=== PATIENT | female | born 1945 | race Caucasian/White ===

== ENCOUNTER 2021-07-16 12:08 | Emergency (ER) | payer MEDICARE ==
[~2021-07-16] VITALS: Ht 165.1 cm; Wt 76.0 kg
[2021-07-16] MEDS ORDERED: fentaNYL PF VIAL 100 MCG/2 ML VIAL IV ONE ×2 (12:30→15:45)
[2021-07-16] MEDS ORDERED: MULTIVIT INFUSN,ADULT 4,VIT K 10 ML, THIAMINE INJ 100 MG, FOLIC ACID INJ 1 MG in IV NOR... IV ONE (12:30)
--- NOTE | 2021-07-16 12:40 | PHYS DOC ---
Past Medical History Past Medical History: A-Fib, Alcoholism Past Surgical History: Other Additional Past Surgical Histo: patient is poor historian Alcohol Use: Heavy General Adult EDM: Chief Complaint: UPPER EXTREMITY INJURY HPI: HPI: Patient is a 75-year-old female brought in to the emergency department by EMS for a fall that had happened 2 days prior. Patient states that she recently started drinking again after 10 years sober and tripped over her cat 2 days ago. She denies hitting her head and states that she fell because she tripped over her cat and not anything else. Denies any radiation or associated symptoms at this time. Patient is somewhat of a poor historian Review of Systems: Review of Systems: Constitutional: Denies fever or chills Eyes: Denies redness or eye pain HENT: Denies nasal congestion or sore throat Respiratory: Denies cough or shortness of breath Cardiovascular: Denies chest pain or palpitations GI: Denies abdominal pain, nausea, or vomiting : Denies dysuria or hematuria Musculoskeletal: complains of left shoulder pain x 2 days Integument: Denies rash or skin lesions Neurologic: Denies headache, focal weakness or sensory changes Complete systems were reviewed and found to be within normal limits, except as documented in this note. Heart Score: C/O Chest Pain: N/A Current Medications: Current Medications Medications (Trade) Dose Ordered Sig/Gagandeep Start Time Stop Time Status Last Admin Dose Admin Fentanyl Citrate (Fentanyl 2ml Vial) 50 mcg 1X ONCE 07/16/21 12:30 07/16/21 12:31 DC Multivitamins 10 ml/Thiamine HCl 100 mg/Folic Acid 1 mg/Sodium Chloride 1,011.2 ml @ 1,000.088 mls/hr 1X ONCE 07/16/21 12:30 07/16/21 13:30 Allergies: Allergies: Allergies Coded Allergies Type Severity Reaction Last Updated Verified No Known Drug Allergies 07/16/21 No Physical Exam: PE: Constitutional: Well developed, patient appears malnourished and uncomfortable. HENT: Normocephalic, abrasion and ecchymoses surrounding her left eye. Eyes: conjunctiva normal, no discharge Neck: Normal range of motion, no tenderness, supple Lungs & Thorax: No respiratory distress, equal chest rise and fall, CTAB Abdomen: Soft, epigastric tenderness, good bowel sounds x 4 Skin: Warm, dry, no erythema, no rash Back: No tenderness, no CVA tenderness Extremities: Limited range of motion of the left arm compared to right arm. Prominent ecchymoses on the left shoulder radiating down the left arm. Radial pulse and sensation intact in the bilateral upper extremities Neurologic: Alert and oriented X 3, normal motor function, normal sensory function, Psychologic: Affect diminished judgment abnormal Current Patient Data: Labs: Laboratory Tests Test 07/16/21 12:46 White Blood Count 19.9 x10^3/uL Red Blood Count 4.24 x10^6/uL Hemoglobin 13.1 g/dL Hematocrit 39.6 % Mean Corpuscular Volume 93 fL Mean Corpuscular Hemoglobin 31 pg Mean Corpuscular Hemoglobin Concent 33 g/dL Red Cell Distribution Width 13.7 % Platelet Count 266 x10^3/uL Neutrophils (%) (Auto) 86 % Lymphocytes (%) (Auto) 5 % Monocytes (%) (Auto) 8 % Eosinophils (%) (Auto) 0 % Basophils (%) (Auto) 0 % Neutrophils # (Auto) 17.2 x10^3/uL Lymphocytes # (Auto) 1.1 x10^3/uL Monocytes # (Auto) 1.6 x10^3/uL Eosinophils # (Auto) 0.0 x10^3/uL Basophils # (Auto) 0.0 x10^3/uL Platelet Estimate Pending Sodium Level 145 mmol/L Potassium Level 3.1 mmol/L Chloride Level 106 mmol/L Carbon Dioxide Level 21 mmol/L Anion Gap 18 Blood Urea Nitrogen 25 mg/dL Creatinine 2.2 mg/dL Estimated GFR (Cockcroft-Gault) 21.9 BUN/Creatinine Ratio 11 Glucose Level 165 mg/dL Calcium Level 8.2 mg/dL Magnesium Level 1.6 mg/dL Total Bilirubin 0.8 mg/dL Aspartate Amino Transf (AST/SGOT) 54 U/L Alanine Aminotransferase (ALT/SGPT) 45 U/L Alkaline Phosphatase 126 U/L Creatine Kinase 1447 U/L Creatine Kinase MB (Mass) 10.1 ng/mL Creatine Kinase MB Relative Index 0.7 % Troponin I High Sensitivity 29 ng/L Total Protein 6.9 g/dL Albumin 2.9 g/dL Albumin/Globulin Ratio 0.7 Lipase 25 U/L Ethyl Alcohol Level < 10 mg/dL Current Medications Medications (Trade) Dose Ordered Sig/Gagandeep Route PRN Reason Start Time Stop Time Status Last Admin Dose Admin Multivitamins 10 ml/Thiamine HCl 100 mg/Folic Acid 1 mg/Sodium Chloride 1,011.2 ml @ 1,000.088 mls/hr 1X ONCE IV 07/16/21 12:30 07/16/21 13:30 DC 07/16/21 12:30 Fentanyl Citrate (Fentanyl 2ml Vial) 50 mcg 1X ONCE IV 07/16/21 12:30 07/16/21 12:31 DC 07/16/21 12:30 Vital Signs: Vital Signs Date Time Temp Pulse Resp B/P (MAP) Pulse Ox O2 Delivery O2 Flow Rate FiO2 07/16/21 12:14 98.4 100 16 124/67 (86) 94 Room Air 98.4 EKG: EKG: @1513 tachycardic @ 104 BPM, irregular rhythm, no p-wave found, t wave abnormality in anterior and inferior leads. NO ST SEGMENT ELEVATION. QT/QTc: 348/464 Radiology/Procedures: Radiology/Procedures: PROCEDURE: SHOULDER 2+V LEFT EXAM: Left shoulder, 3 views. HISTORY: Pain. Fall. COMPARISON: None. FINDINGS: 3 views of the left shoulder obtained. There is a displaced and angulated humeral neck fracture. There is no evidence of shoulder dislocation. IMPRESSION: Displaced and angled humeral neck fracture. Electronically signed by: Lenora Steel MD (07/16/2021 12:42 PM) [id number] PROCEDURE: CT MAXILLOFACIAL WO CONTRAST EXAM: Head CT without contrast; maxillofacial bone CT without contrast; cervical spine CT without contrast. HISTORY: Fall. Pain. TECHNIQUE: Computed tomographic images of the head, maxillofacial bones and cervical spine were obtained without contrast. *One or more of the following individualized dose reduction techniques were utilized for this examination: 1. Automated exposure control. 2. Adjustment of the mA and/or kV according to patient size. 3. Use of iterative reconstruction technique. COMPARISON: None. FINDINGS: Head: There is no intracranial hemorrhage. There is no mass effect or midline shift. There is no hydrocephalus. There are cerebral white matter changes, likely due to chronic small vessel disease. There is mild cerebral volume loss. There is no suspicious calvarial lesion. The mastoid air cells are clear. The temporomandibular joints are intact. Maxillofacial bones: There is slight angulation of the right nasal bone and is cartilage, the appearance of which favors a healed fracture or developmental in etiology. There is a chronic right lamina papyracea fracture. There is rightward nasal septal deviation. The ostiomeatal units are patent. There is no sinus opacification or air-fluid level. Cervical spine: There is cervical kyphosis and multilevel degenerative listhesis. There is a moderate compression fracture with Schmorl's node formation at T3. This is chronic in appearance. There is severe degenerative endplate remodeling with disc space narrowing, osteophytosis and Schmorl's node formation at the mid lower cervical and upper thoracic levels. There is multilevel advanced facet arthropathy. No fracture is seen. The combination of degenerative changes results in mild left foraminal stenosis at C2-C3, severe right and mild to moderate left foraminal stenosis at C3-C4, severe right and [id number] left foraminal stenosis at C4-C5, moderate right and mild central canal stenosis at C5-C6 and severe right foraminal and mild central canal stenosis at C6-C7. IMPRESSION: 1. No acute intracranial finding or evidence of acute maxillofacial bone or cervical spine trauma. 2. Chronic appearing right lamina papyracea fracture and possible right nasal bone fracture. 3. Chronic appearing T3 compression fracture with endplate Schmorl's node formation. 4. Cerebral white matter changes, likely due to chronic small vessel disease. 5. Cerebral volume loss. 6. Multilevel degenerative change throughout the cervical spine, resulting in significant stenosis at the aforementioned levels. Electronically signed by: Lenora Steel MD (07/16/2021 1:53 PM) [id number] PROCEDURE: CT HEAD AND CERVICAL SPINE WO EXAM: Head CT without contrast; maxillofacial bone CT without contrast; cervical spine CT without contrast. HISTORY: Fall. Pain. TECHNIQUE: Computed tomographic images of the head, maxillofacial bones and cervical spine were obtained without contrast. *One or more of the following individualized dose reduction techniques were utilized for this examination: 1. Automated exposure control. 2. Adjustment of the mA and/or kV according to patient size. 3. Use of iterative reconstruction technique. COMPARISON: None. FINDINGS: Head: There is no intracranial hemorrhage. There is no mass effect or midline shift. There is no hydrocephalus. There are cerebral white matter changes, likely due to chronic small vessel disease. There is mild cerebral volume loss. There is no suspicious calvarial lesion. The mastoid air cells are clear. The temporomandibular joints are intact. Maxillofacial bones: There is slight angulation of the right nasal bone and is cartilage, the appearance of which favors a healed fracture or developmental in etiology. There is a chronic right lamina papyracea fracture. There is rightward nasal septal deviation. The ostiomeatal units are patent. There is no sinus opacification or air-fluid level. Cervical spine: There is cervical kyphosis and multilevel degenerative listhesis. There is a moderate compression fracture with Schmorl's node formation at T3. This is chronic in appearance. There is severe degenerative endplate remodeling with disc space narrowing, osteophytosis and Schmorl's node formation at the mid lower cervical and upper thoracic levels. There is multilevel advanced facet arthropathy. No fracture is seen. The combination of degenerative changes results in mild left foraminal stenosis at C2-C3, severe right and mild to moderate left foraminal stenosis at C3-C4, severe right and [id number]-[id number] left foraminal stenosis at C4-C5, moderate right and mild central canal stenosis at C5-C6 and severe right foraminal and mild central canal stenosis at C6-C7. IMPRESSION: 1. No acute intracranial finding or evidence of acute maxillofacial bone or cervical spine trauma. 2. Chronic appearing right lamina papyracea fracture and possible right nasal bone fracture. 3. Chronic appearing T3 compression fracture with endplate Schmorl's node formation. 4. Cerebral white matter changes, likely due to chronic small vessel disease. 5. Cerebral volume loss. 6. Multilevel degenerative change throughout the cervical spine, resulting in significant stenosis at the aforementioned levels. Electronically signed by: Lenora Steel MD (07/16/2021 1:53 PM) [id number] Course & Med Decision Making: Course & Med Decision Making Pertinent Labs and Imaging studies reviewed. (See chart for details) Patient presented to the ED by EMS after falling 2 days ago patient states that she had initially tripped over her cat and recently started drinking again after 10 years sober. While in the emergency department is noticed that the patient had severe ecchymosis of her left shoulder x-ray showed fracture of the humeral neck. Patient was also found to be dehydrated and received fluid resuscitation while in the emergency department. Labs indicated possible rhabdomyolysis due to creatine kinase greater than 1400 in addition to acute kidney injury. It was recommended that patient would be admitted overnight so internal medicine and orthopedic surgery could follow the patient. After discussing this with the patient she decided that she would follow-up outpatient and her will take care of her at home. Patient is deciding to leave AMA. Patient stable for discharge with outpatient follow-up with PCP. Discussed findings and plan with patient, who acknowledges understanding and agreement. Earl Disclaimer: Earl Disclaimer: This electronic medical record was generated, in whole or in part, using a voice recognition dictation system. Departure Departure Impression: Primary Impression: Fracture of neck of humerus Qualified Codes: S42.212A - Unspecified displaced fracture of surgical neck of left humerus, initial encounter for closed fracture Additional Impressions: Fall Qualified Codes: W19.XXXA - Unspecified fall, initial encounter Contusion of face Qualified Codes: S00.83XA - Contusion of other part of head, initial encounter Elevated CPK Hypomagnesemia Hypokalemia Left against medical advice Disposition: LEFT AGAINST MEDICAL ADVICE Condition: GUARDED Referrals: RUPERTO FONTANEZ MD Patient Instructions: Discharge Against Medical Advice, Facial or Scalp Contusion, [id number], Fall Prevention and Home Safety, Opee-[id number], Humerus Fracture, Treated with Immobilization, [id number], Hypokalemia, Hypomagnes emia, Shoulder Immobilizer Scripts Hydrocodone Bit/Acetaminophen (HYDROCODONE-APAP 5-325 ) 1 Tab Tablet 0.5 TAB PO PRN Q6HRS PRN for PAIN, #10 TAB 0 Refills Prov: DAVID RODAS DO 07/16/21 ADVID RODAS DO Jul 16, 2021 12:40
--- NOTE | 2021-07-16 12:44 | RAD ---
EXAM: Left shoulder, 3 views. HISTORY: Pain. Fall. COMPARISON: None. FINDINGS: 3 views of the left shoulder obtained. There is a displaced and angulated humeral neck frac ture. There is no evidence of shoulder dislocation. IMPRESSION: Displaced and angled humeral neck fracture. Electronically signed by: Lenora Steel MD (07/16/2021 12:42 PM) [id number]
[2021-07-16 12:56] LABS: BASO % 0 % (0-3); EOS % 0 % (0-3); HEMATOCRIT 39.6 % (36.0-47.0); HEMOGLOBIN 13.1 g/dL (12.0-15.5); LYMPH # 1.1 x10^3/uL (1.0-4.8); LYMPH % 5 % (24-48); MEAN CORPUSCULAR HEMOGLOBIN 31 pg (25-35); MEAN CORPUSCULAR HGB CONC 33 g/dL (31-37); MEAN CORPUSCULAR VOLUME 93 fL (79-100); MONO # 1.6 x10^3/uL (0.0-1.1); MONO % 8 % (0-9); NEUT # 17.2 x10^3/uL (1.8-7.7); NEUT % 86 % (31-73); PLATELET COUNT 266 x10^3/uL (140-400); RED BLOOD COUNT 4.24 x10^6/uL (3.50-5.40); RED CELL DISTRIBUTION WIDTH 13.7 % (11.5-14.5); WHITE BLOOD COUNT 19.9 x10^3/uL (4.0-11.0)
[2021-07-16 13:09] LABS: CALCIUM 8.2 mg/dL (8.5-10.1); CREATININE 2.2 mg/dL (0.6-1.0); GFR 21.9; POTASSIUM 3.1 mmol/L (3.5-5.1)
[2021-07-16 13:16] LABS: ALBUMIN 2.9 g/dL (3.4-5.0); ALBUMIN/GLOBULIN RATIO 0.7 (1.0-1.7); MAGNESIUM 1.6 mg/dL (1.8-2.4); TOTAL BILIRUBIN 0.8 mg/dL (0.2-1.0); TOTAL PROTEIN 6.9 g/dL (6.4-8.2)
--- NOTE | 2021-07-16 13:56 | RAD ---
EXAM: Head CT without contrast; maxillofacial bone CT without contrast; cervical spine CT without con trast. HISTORY: Fall. Pain. TECHNIQUE: Computed tomographic images of the head, maxillofacial bones and cervical spine were obtai airam without contrast. *One or more of the following individualized dose reduction techniques were utilized for this examina tion: 1. Automated exposure control. 2. Adjustment of the mA and/or kV according to patient size. 3. Use of iterative reconstruction technique. COMPARISON: None. FINDINGS: Head: There is no intracranial hemorrhage. There is no mass effect or midline shift. There is no hydr ocephalus. There are cerebral white matter changes, likely due to chronic small vessel disease. There is mild cerebral volume loss. There is no suspicious calvarial lesion. The mastoid air cells are jan ar. The temporomandibular joints are intact. Maxillofacial bones: There is slight angulation of the right nasal bone and is cartilage, the appeara nce of which favors a healed fracture or developmental in etiology. There is a chronic right lamina p apyracea fracture. There is rightward nasal septal deviation. The ostiomeatal units are patent. There is no sinus opacification or air-fluid level. Cervical spine: There is cervical kyphosis and multilevel degenerative listhesis. There is a moderate compression fracture with Schmorl's node formation at T3. This is chronic in appearance. There is se kerry degenerative endplate remodeling with disc space narrowing, osteophytosis and Schmorl's node for mation at the mid lower cervical and upper thoracic levels. There is multilevel advanced facet arthro paula. No fracture is seen. The combination of degenerative changes results in mild left foraminal stenosis at C2-C3, severe righ t and mild to moderate left foraminal stenosis at C3-C4, severe right and [id number] left dave inal stenosis at C4-C5, moderate right and mild central canal stenosis at C5-C6 and severe right fora susan and mild central canal stenosis at C6-C7. IMPRESSION: 1. No acute intracranial finding or evidence of acute maxillofacial bone or cervical spine trauma. 2. Chronic appearing right lamina papyracea fracture and possible right nasal bone fracture. 3. Chronic appearing T3 compression fracture with endplate Schmorl's node formation. 4. Cerebral white matter changes, likely due to chronic small vessel disease. 5. Cerebral volume loss. 6. Multilevel degenerative change throughout the cervical spine, resulting in significant stenosis at the aforementioned levels. Electronically signed by: Lenora Steel MD (07/16/2021 1:53 PM) [id number]
[2021-07-16 14:45] LABS: % LYMPHS 7 % (24-48); % MONOS 9 % (0-10); % SEGS 84 % (35-66); NUCLEATED RBC 1; PLT ESTIMATE ADEQUATE (ADEQUATE)
[2021-07-16 14:46] LABS: POLYCHROMASIA SLIGHT
[2021-07-16 15:22] LABS: BILIRUBIN,URINE SMALL (NEG); CLARITY,URINE CLEAR; COLOR,URINE AMBER; NITRITE,URINE NEGATIVE (NEG); PH,URINE 5.5 (<5.0-8.0); PROTEIN,URINE NEGATIVE (NEG-TRACE); UROBILINOGEN,URINE 0.2 mg/dL (0.2 mg/dL)
[2021-07-16 15:37] LABS: HYALINE CASTS, URINE MANY /HPF
[2021-07-16 15:39] LABS: GRANULAR CASTS,URINE OCCASIONAL /HPF
[2021-07-16 15:40] LABS: AMORPHOUS SEDIMENT,UR PRESENT /HPF; BACTERIA,URINE FEW /HPF (0-FEW); RBC,URINE OCC /HPF (0-2)
[2021-07-16 15:45] VITALS: BP 122/65
[2021-07-16] MEDS ORDERED: MAGNESIUM CHLORIDE ER 64 MG TABLET.ER PO ONE (15:45)
[2021-07-16] MEDS ORDERED: POTASSIUM CHLORIDE 20 MEQ TABLET.ER. PO ONE (15:45)
--- NOTE | 2021-07-16 15:59 | EKG ---
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
[2021-07-16] MEDS ORDERED: HYDR-2761 PO (16:23)
== END 2021-07-16 16:26 | disposition left against medical advice (07) ==
LOC: ER 12:08
DX: S42.212A Unspecified displaced fracture of surgical neck of left humerus, initial encounter for closed fracture (principal); S00.83XA Contusion of other part of head, initial encounter; I48.91 Unspecified atrial fibrillation; E83.42 Hypomagnesemia; E87.6 Hypokalemia; R74.8 Abnormal levels of other serum enzymes; W01.0XXA Fall on same level from slipping, tripping and stumbling without subsequent striking against object, initial encounter; Y93.89 Activity, other specified; Y92.89 Other specified places as the place of occurrence of the external cause; Y99.8 Other external cause status
CPT/HCPCS: 36415; 70450; 70486; 72125; 73030; 80053; 81001; 82553; 83690; 83735; 84484; 85007; 85025; 93005; 96365; 96366; 96375; 96376; 99285; G0480; J3010; J3411; J3490; J7030

== ENCOUNTER 2021-07-18 09:37 | Emergency (ER) | payer MEDICARE ==
[~2021-07-18] VITALS: Ht 167.6 cm; Wt 71.0 kg
[~2021-07-18 09:37] MED LIST: HYDR-2761 PO
--- NOTE | 2021-07-18 09:42 | PHYS DOC ---
Past Medical History Past Medical History: A-Fib, Alcoholism Past Surgical History: Other Additional Past Surgical Histo: patient is poor historian Alcohol Use: Heavy General Adult EDM: Chief Complaint: PAIN CONTROL HPI: HPI: Patient is a 75 year old female who presents with continued left shoulder pain. She was seen here 2 days ago after a fall. She sustained facial contusion, she had a negative head CT, negative spine CT, she was diagnosed with a left proximal humerus fracture. She was placed in a shoulder immobilizer. She decided to leave AGAINST MEDICAL ADVICE. Her laboratory exams indicated acute kidney injury with rhabdomyolysis, hypokalemia and hypomagnesemia. The patient had been drinking alcohol when she fell. She denies any of alcohol since that time. She is not taking anything except Tylenol for pain, she reports this is not helping. She repeatedly asks for "pain pills." She has not contacted her primary care physician or orthopedics since her discharge. She lives at home with her . She reports that she feels safe, and she feels that her is able to help take care of her. She normally ambulates on her own. She denies any new fall or injury since that time. She denies chest pain, dyspnea, cough, headache, dizziness, abdominal pain, nausea or vomiting. She reports that she has not been eating or drinking very well. She is urinating normally, denies urinary symptoms. She denies incontinence. She denies any focal weakness. Review of Systems: Review of Systems: Constitutional: Denies fever or chills. [] Eyes: Denies change in visual acuity or vision loss. HENT: Denies nasal congestion or sore throat. Left-sided facial contusion, healing. Denies epistaxis. Denies difficulty swallowing or voice changes. D enies otorrhea. Respiratory: Denies cough or shortness of breath. [] Cardiovascular: Denies chest pain or edema. [] GI: Denies abdominal pain, nausea, vomiting, or constipation or diarrhea : Denies Candido symptoms Musculoskeletal: Left upper extremity/left shoulder pain Integument: Large bruise of her left upper extremity Neurologic: Denies headache, focal weakness or sensory changes. Psychiatric: Denies depression or anxiety. [] Heart Score: C/O Chest Pain: No Risk Factors: Risk Factors: DM, Current or recent (<one month) smoker, HTN, HLP, family history of CAD, obesity. Risk Scores: Score 0 - 3: 2.5% MACE over next 6 weeks - Discharge Home Score 4 - 6: 20.3% MACE over next 6 weeks - Admit for Clinical Observation Score 7 - 10: 72.7% MACE over next 6 weeks - Early Invasive Strategies Allergies: Allergies: Allergies Coded Allergies Type Severity Reaction Last Updated Verified No Known Drug Allergies 07/16/21 No Physical Exam: PE: Constitutional: Frail, disheveled and unkempt, no acute distress, non-toxic appearance. She is disheveled, chronically ill-appearing. HENT: Normocephalic, no acute trauma noted. She has healing contusions of her left periorbital area, left cheek. No periorbital edema or erythema. Nares are patent without rhinorrhea or epistaxis. TMs are clear bilaterally. No otorrhea. No hemotympanum. No postauricular erythema, or contusions. Mucous membranes are moist. Her hair is markedly matted, dirty. Eyes: PERRL, EOMI, conjunctiva normal, no discharge. No enophthalmos or exophthalmos noted. No pain with extraocular movements. Globes are grossly intact. Neck: Normal range of motion, no tenderness, supple, no stridor. Midline tenderness or step-offs. Cardiovascular:Heart rate regular rhythm, +2 radial and +2 dorsalis pedis pulses bilaterally. Lungs & Thorax: Bilateral breath sounds clear to auscultation, equal chest rise, no evidence of chest wall trauma or injury. No rales, rhonchi or wheezes. Speaks in full and clear senses. Abdomen: Abdomen is soft, nondistended, nontender to palpation, no palpable pulsatile mass, no audible bruit, normal bowel sounds, no CVA tenderness Skin: Warm, dry, no erythema, no rash. No open wounds. Healing contusions of the left face, as detailed above. Back: No tenderness, no CVA tenderness. No step-offs or midline tenderness of the spine. Extremities: Large circumferential bruising of the left upper arm, markedly limited range of motion secondary to pain and proximal humerus fracture. Compartments are soft. No pain or tenderness at a proportion to exam findings. Left elbow, left forearm, left wrist, left hand and digits are nontender with full range of motion. Sensation is grossly intact. Pelvis is stable. No calf tenderness. No lower extremity tenderness or deformity noted. Neurologic: He is awake, alert, oriented x3, no facial asymmetry, moves all 4 extremities equally, normal dial screw assembler bilaterally, no wrist drop, 5 out of 5 motor strength all 4 extremities, limited range of motion of the left upper extremity secondary to fracture/pain. Sensation grossly intact. Speech is clear and flue nt. Psychologic: Affect is flat. She is relatively cooperative. [] EKG: EKG: [] Radiology/Procedures: Radiology/Procedures: IMAGING REPORT Signed PATIENT: ANNE MARIE BENITO ACCOUNT: [id number] : 1945 LOCATION: ER AGE: 75 SEX: F EXAM STATUS: REG ER ORD. PHYSICIAN: DEANNA SAHNI DO REASON: fall last week, dizziness, weakness PROCEDURE: CT HEAD WO CONTRAST EXAM: Head CT without contrast. HISTORY: Fall. Dizziness. TECHNIQUE: Computed tomographic images of the head were obtained without contrast. *One or more of the following individualized dose reduction techniques were utilized for this examination: 1. Automated exposure control. 2. Adjustment of the mA and/or kV according to patient size. 3. Use of iterative reconstruction technique. COMPARISON: 07/16/2021. FINDINGS: There is no acute or subacute extra-axial or intraparenchymal hemorrhage. There is no mass effect or midline shift. There is no hydrocephalus. There are areas of decreased attenuation within the cerebral white matter, nonspecific and likely related to chronic small vessel disease. There is cerebral volume loss. There is a chronic right lamina papyracea fracture. The mastoid air cells are clear. There is no suspicious calvarial lesion. IMPRESSION: 1. No acute intracranial finding. 2. Bilateral cerebral white matter changes, likely due to chronic small vessel disease. 3. Cerebral volume loss. Electronically signed by: Lenora Steel MD (07/18/2021 10:50 AM) [facility] DICTATED and SIGNED BY: LENORA STEEL MD DATE: 07/18/21 [id number] IMAGING REPORT Signed PATIENT: ANNE MARIE BENITO ACCOUNT: [id number] : 1945 LOCATION: ER AGE: 75 SEX: F EXAM STATUS: REG ER ORD. PHYSICIAN: DEANNA SAHNI DO REASON: fall, fx, worsening pain PROCEDURE: SHOULDER 2+V LEFT EXAM: Left shoulder, 3 views. HISTORY: Fall. Pain. COMPARISON: None. FINDINGS: 3 views of the left shoulder obtained. There is a displaced humeral head and neck fracture. There is no evidence of shoulder dislocation. There is degenerative change involving the visualized cervical spine. The acromioclavicular joint is intact. IMPRESSION: Displaced humeral head and neck fracture. Electronically signed by: Lenora Steel MD (07/18/2021 10:40 AM) [facility] DICTATED and SIGNED BY: LENORA STEEL MD DATE: 07/18/21 [id number] Course & Med Decision Making: Course & Med Decision Making Pertinent Labs and Imaging studies reviewed. (See chart for details) Patient is given IV fluids, I gave her a dose of IV fentanyl and p.o. [place]. P.o. magnesium and p.o. potassium replacement are given. Her renal function appears to be improved. CK level is improving. No acute intracranial process noted on repeat CT. Proximal humerus fracture still noted. No evidence of neurovascular compromise., No evidence of compartment syndrome noted. She already has a shoulder immobilizer. She is already been referred to outpatient orthopedics. I have discussed all of the findings, differential diagnosis and plan of care with her. I recommended hospitalization, secondary to my concern for her inability to properly care for self. She adamantly refuses admission, refuses to stay for any further evaluation or treatment. She is not clinically intoxicated. She is awake and alert, fully oriented, verbalizes understanding of my concerns and of the differential diagnosis and of the diagnoses given here today. I recommend that she contact her PCP on Tuesday. I also recommend she follow-up with outpatient orthopedics, as she has been instructed to do previously. Her fracture he should be managed nonoperatively, but she should still follow-up with outpatient orthopedics. Earl Disclaimer: Earl Disclaimer: This electronic medical record was generated, in whole or in part, using a voice recognition dictation system. Departure Departure Impression: Primary Impression: Closed fracture of proximal end of left humerus Additional Impressions: Facial contusion Hypokalemia Hypomagnesemia History of fall Disposition: 01 HOME / SELF CARE / HOMELESS Condition: STABLE Referrals: UNKNOWN PCP NAME (PCP) Patient Instructions: Facial or Scalp Contusion, Fall Prevention and Home Safety, Humerus Fracture, Treated with Immobilization, Hypokalemia, Hypomagnesemia Additional Instructions: Please contact your primary care doctor and the orthopedic surgeon for follow- up. Make sure you stay hydrated. Make sure you eat a healthy diet. Please avoid drinking alcohol. Use the pain medication as needed for severe pain only. Keep your shoulder immobilizer on. Return to the ER immediately for chest pain, shortness of breath, if you have any new injury or trauma, severe headache, focal weakness, uncontrolled vomiting, abdominal pain or any other concerns. Scripts Magnesium Oxide (MAGNESIUM OXIDE) 400 Mg Tablet 1 TAB PO DAILY, #30 TAB 0 Refills Prov: DEANNA SAHNI DO 07/18/21 Potassium Chloride (POTASSIUM CHLORIDE ) 10 Meq Tab.sr.24h 10 MEQ PO DAILY for SUPPLEMENT, #30 TAB.SR Prov: DEANNA SAHNI DO 07/18/21 Hydrocodone Bit/Acetaminophen (HYDROCODONE-APAP 5-325 ) 1 Tab Tablet 1 TAB PO PRN Q6HRS PRN for PAIN, #15 TAB 0 Refills Prov: DEANNA SAHNI DO 07/18/21 DEANNA SAHNI DO Jul 18, 2021 09:42
[2021-07-18] MEDS ORDERED: fentaNYL PF VIAL 100 MCG/2 ML VIAL IVP ONE (10:15)
[2021-07-18] MEDS ORDERED: IV NORMAL SALINE 1000ML BAG 1,000 ML IV ONE (10:15)
[2021-07-18 10:28] LABS: BASO % 0 % (0-3); EOS % 0 % (0-3); HEMATOCRIT 34.6 % (36.0-47.0); HEMOGLOBIN 11.6 g/dL (12.0-15.5); LYMPH % 6 % (24-48); MEAN CORPUSCULAR HEMOGLOBIN 32 pg (25-35); MEAN CORPUSCULAR HGB CONC 34 g/dL (31-37); MEAN CORPUSCULAR VOLUME 94 fL (79-100); MONO # 0.8 x10^3/uL (0.0-1.1); MONO % 6 % (0-9); NEUT # 13.5 x10^3/uL (1.8-7.7); NEUT % 88 % (31-73); PLATELET COUNT 277 x10^3/uL (140-400); RED BLOOD COUNT 3.69 x10^6/uL (3.50-5.40); RED CELL DISTRIBUTION WIDTH 13.9 % (11.5-14.5); WHITE BLOOD COUNT 15.4 x10^3/uL (4.0-11.0)
--- NOTE | 2021-07-18 10:42 | RAD ---
EXAM: Left shoulder, 3 views. HISTORY: Fall. Pain. COMPARISON: None. FINDINGS: 3 views of the left shoulder obtained. There is a displaced humeral head and neck fracture. There is no evidence of shoulder dislocation. There is degenerative change involving the visualized cervical spine. The acromioclavicular joint is intact. IMPRESSION: Displaced humeral head and neck fracture. Electronically signed by: Lenora Steel MD (07/18/2021 10:40 AM) [facility]
[2021-07-18 10:47] LABS: ALBUMIN 2.6 g/dL (3.4-5.0); ALBUMIN/GLOBULIN RATIO 0.7 (1.0-1.7); CALCIUM 8.3 mg/dL (8.5-10.1); CREATININE 0.9 mg/dL (0.6-1.0); GFR 61.4; MAGNESIUM 1.6 mg/dL (1.8-2.4); PHOSPHORUS 1.5 mg/dL (2.6-4.7); TOTAL BILIRUBIN 0.7 mg/dL (0.2-1.0); TOTAL PROTEIN 6.3 g/dL (6.4-8.2)
--- NOTE | 2021-07-18 10:53 | RAD ---
EXAM: Head CT without contrast. HISTORY: Fall. Dizziness. TECHNIQUE: Computed tomographic images of the head were obtained without contrast. *One or more of the following individualized dose reduction techniques were utilized for this examina tion: 1. Automated exposure control. 2. Adjustment of the mA and/or kV according to patient size. 3. Use of iterative reconstruction technique. COMPARISON: 07/16/2021. FINDINGS: There is no acute or subacute extra-axial or intraparenchymal hemorrhage. There is no mass effect or midline shift. There is no hydrocephalus. There are areas of decreased attenuation within the cerebral white matter, nonspecific and likely rel ated to chronic small vessel disease. There is cerebral volume loss. There is a chronic right lamina papyracea fracture. The mastoid air ce lls are clear. There is no suspicious calvarial lesion. IMPRESSION: 1. No acute intracranial finding. 2. Bilateral cerebral white matter changes, likely due to chronic small vessel disease. 3. Cerebral volume loss. Electronically signed by: Lenora Steel MD (07/18/2021 10:50 AM) [facility]
[2021-07-18 11:11] LABS: % BANDS 2 % (0-9); % LYMPHS 8 % (24-48); % MONOS 4 % (0-10); % SEGS 86 % (35-66)
[2021-07-18 11:12] LABS: PLT ESTIMATE ADEQUATE (ADEQUATE)
[2021-07-18] MEDS ORDERED: POTASSIUM CHLORIDE 20 MEQ TABLET.ER. PO ONE (11:15)
[2021-07-18 11:39] VITALS: BP 131/65
[2021-07-18] MEDS ORDERED: MAGNESIUM OXIDE 400 MG TABLET PO ONE (11:45)
[2021-07-18] MEDS ORDERED: HYDROcodone/APAP 5/325MG 1 TAB TABLET PO ONE (11:45)
[2021-07-18] MEDS ORDERED: HYDR-2761 PO (11:49)
[2021-07-18] MEDS ORDERED: POTA10TA12 PO (11:50)
[2021-07-18] MEDS ORDERED: MAGN400T48 PO (11:51)
== END 2021-07-18 12:20 | disposition home or self-care (01) ==
LOC: ER 09:37
DX: S42.202A Unspecified fracture of upper end of left humerus, initial encounter for closed fracture (principal); S00.83XA Contusion of other part of head, initial encounter; E87.6 Hypokalemia; E83.42 Hypomagnesemia; I48.91 Unspecified atrial fibrillation; W18.39XA Other fall on same level, initial encounter; Y93.89 Activity, other specified; Y92.89 Other specified places as the place of occurrence of the external cause; Y99.8 Other external cause status
CPT/HCPCS: 36415; 70450; 73030; 80053; 82550; 83735; 84100; 85007; 85025; 96361; 96374; 99285; G0480; J3010; J7030